=== PATIENT | female | born 1950 | race Caucasian/White ===

== ENCOUNTER 2017-10-29 05:55 | Day surgery (SDC) | payer MEDICARE, OTHER ==
[2017-10-29] MEDS ORDERED: SODIUM CHL 0.9% 100ML MINI-BAG 100 ML IVPB ONE (06:12)
[2017-10-29] MEDS ORDERED: ceFAZolin SODIUM 1 GM VIAL ONE (06:13)
[2017-10-29] MEDS ORDERED: LACTATED RINGERS 1,000 ML ONE (06:13)
[2017-10-29 09:45] VITALS: BP 141/72; TEMP 97.8; O2SAT 98
[2017-10-29] MEDS ORDERED: MIDAZOLAM INJ 2 MG/2 ML VIAL IV ONE (10:00)
[2017-10-29] MEDS ORDERED: fentaNYL CITRATE INJ 50 MCG/ML AMP IV ONE (10:00)
[2017-10-29] MEDS ORDERED: PROPOFOL 200 MG/20 ML VIAL IV ONE (10:00)
[2017-10-29] MEDS ORDERED: LIDOCAINE 1% 10 ML VIAL INJ ONE (10:00)
--- NOTE | 2017-10-29 10:24 | OP ---
DATE OF PROCEDURE: 10/29/17 PREPROCEDURE DIAGNOSIS: 1. Average risk screening colonoscopy. POSTPROCEDURE DIAGNOSIS: 1. Colonic polyp. 2. Internal hemorrhoids. PROCEDURE: 1. Colonoscopy with polypectomy. SURGEON: Emigdio Alvarado MD. SEDATION: Monitored anesthesia care. ESTIMATED BLOOD LOSS: Less than 5 mL. PROCEDURE: Informed consent was obtained prior to sedation. The preprocedure cardiopulmonary assessment was satisfactory. The patient was brought to the Endoscopy Suite and placed in the left lateral decubitus position. The patient was then sedated by the anesthesia team. Digital rectal and perianal exams revealed no abnormalities. The tip of the Olympus colonoscope was inserted into the rectum and advanced under direct visualization to the cecum as identified by the presence of the appendiceal orifice and ileocecal valve. Preparation of the colon was good. Upon reaching the cecum, the endoscope was slowly withdrawn from the patient with careful attention paid to the entire colonic mucosa for the identification of any flat polyps. In the hepatic flexure, there was a 6-mm sessile polyp. This was resected with a cold snare and retrieved for pathology. The remaining examination of the colon was normal. Retroflexed view of the anal verge showed medium-sized, non-bleeding internal hemorrhoids. The endoscope was then withdrawn from the patient and the procedure terminated. RECOMMENDATION: 1. Discharge the patient home with escort. 2. Resume regular diet. 3. Resume regular activities. 4. Continue present medications. 5. Followup pathology results. 6. Repeat colonoscopy in 5 years if pathology returns adenoma; 10 years if nonneoplastic. #[id number] [facility]
== END 2017-10-29 10:40 | disposition home or self-care (01) ==
LOC: AMB 05:55
PROVIDERS: ATTEND Internal Medicine Gastroenterology
DX: Z12.11 Encounter for screening for malignant neoplasm of colon (principal); D12.3 Benign neoplasm of transverse colon; K64.8 Other hemorrhoids; E66.9 Obesity, unspecified; Z68.33 Body mass index [BMI] 33.0-33.9, adult; Z96.643 Presence of artificial hip joint, bilateral; Z96.659 Presence of unspecified artificial knee joint; Z79.82 Long term (current) use of aspirin; Z79.899 Other long term (current) drug therapy
CPT/HCPCS: 00810; 45385; 88305; J0690; J2250; J3010; J3490; J7050; J7120